=== PATIENT | female | born 1990 | race Caucasian/White ===

== ENCOUNTER 2016-10-20 21:17 | Emergency (ER) | payer BC ==
[~2016-10-20] VITALS: Ht 167.6 cm; Wt 82.0 kg
[~2016-10-20 21:17] MED LIST: DOXY100C PO; METR-1 PO
[2016-10-20 21:19] VITALS: BP 131/80; PULSE 82; RESP 16; TEMP 97.8; O2SAT 100
[2016-10-20] MEDS ORDERED: CLINDAMYCIN 150 MG CAP PO ONE (21:45)
[2016-10-20] MEDS ORDERED: NAPROXEN 500 MG TAB PO ONE (21:45)
--- NOTE | 2016-10-20 21:47 | PD ---
HPI Chief Complaint: Oral / Dental Pain or Problem Time Seen by Provider: 21:43 Travel History International Travel<30 days: No Contact w/Intl Traveler<30days: No Traveled to known affect area: No History of Present Illness HPI Patient comes in complaining of right lower molar tooth pain that she awoke with this morning. Patient's pain is throbbing stabbing like in nature and radiates into her ear and head. Pain is worse with smoking, eating, or drinking anything. Patient has taken aspirin as well as Orajel with minimal to no relief of her symptoms. Patient denies any fevers or difficulty swallowing. Denies . PFSH Past Medical History Medical History: Denies Significant Hx Hx Anticoagulant Therapy: No Cardiovascular Problems: No Chemotherapy: No Cerebrovascular Accident: No Diabetes: No Diminished Hearing: No Respiratory: No ?: Not LMP: DEPO INJ : 2 Para: 1 Miscarriage: 1 Past Surgical History Section: Yes Gynecologic Surgery: Yes (LT OVARY REMOVED) Hysterectomy: No Other Surgery: Yes (LT BREAST LUMPECTOMY) Social History Alcohol Use: Yes (OCC) Tobacco Use: Yes (1/2PPD) Substance Use: No Allergies-Medications (Allergen,Severity, Reaction): Coded Allergies: Erythromycin (Unverified Allergy, Severe, SWELLING, 10/20/16) *MDRO Multi-Drug Resistant Organism (Verified Adverse Reaction, Unknown, ) 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 SKIN: Warm and dry. HEAD: Atraumatic. Normocephalic. EYES: Pupils equal and round. EOMI. No scleral icterus. No injection or drainage. ENT: No nasal bleeding or discharge. Mucous membranes pink and moist. Patient impacted wisdom tooth #32 were patient states her pain is, but there is no visible or palpable abscess noted. Uvula is midline. Tympanic membranes are pearly redding bilaterally. Floor of the mouth, submandibular, and submental are all soft palpation. NECK: Trachea midline. No cervical lymphadenopathy. Supple. No nuclear rigidity. RESPIRATORY: No accessory muscle use. No respiratory distress. MUSCULOSKELETAL: No obvious deformities. No clubbing. No cyanosis. No edema. Full range of motion. NEUROLOGICAL: Awake and alert. No obvious cranial nerve deficits. Motor grossly within normal limits. Normal speech. PSYCHIATRIC: Appropriate mood and affect; insight and judgment normal. Data Data Last Documented VS Vital Signs Date Time Temp Pulse Resp B/P Pulse Ox O2 Delivery O2 Flow Rate FiO2 10/20/16 21:19 97.8 82 16 131/80 100 Orders Clindamycin (Cleocin) (10/20/16 21:45) Naproxen (Naprosyn) (10/20/16 21:45) [facility] Medical Decision Making Medical Screen Exam Complete: Yes Emergency Medical Condition: Yes Differential Diagnosis Dental abscess, dental infection, dentalgia, other Narrative Course The patient presented with dental pain. There is no fever. There is no significant facial swelling or evidence of cellulitis. There is no evidence of drainable abscess at this time. There is no evidence of significant deep or invading abscess at this time. The patient will be placed on antibiotics and pain medication. The patient was instructed to follow up with a dentist. The patient was given the dental referral sheet. Warnings were discussed with the patient regarding worsening of infection. The patient is to return if pain worsens, develops progressive swelling or facial redness or fever. The patient agrees with plan. Patient in no obvious distress upon re-evaluation. Patient was asked if they wanted to speak to my attending, which the patient did not wish to do at this time. Any questions/concerns in reference to patient diagnosis/condition discussed and clarified prior to patient's discharge. Reinforced sheer importance of close follow up with patient's primary physician or primary care clinic and/or dentist. Instructed patient to return to ED immediately, if symptoms return/worsen. Pt showed understanding of above instructions. Further instructions and recommendations were detailed in discharge paperwork. Pt ambulated without difficulty out of ED at discharge. Diagnosis Primary Impression: Dentalgia Patient Instructions: Dental Abscess (ED), Dental Caries (DC), General Instructions Additional Instructions: Follow-up with your primary care physician and dentist as soon as possible. Rinse mouth with warm salt water gargles. Take all medication as prescribed. Return to the emergency department if symptoms get worse. Med/Other Pt SpecificInfo: Prescription(s) given Scripts Naproxen (Naprosyn)500 Mg Aem358 Mg PO Q12HR PRN (PAIN SCALE 1 TO 10) #20 TAB Ref 0 Prov:Chikis Topete DO 10/20/16 Clindamycin 150 Mg Cap2 Tab PO Q6H 10 Days Ref 0 Prov:Chikis Topete DO 10/20/16 Disposition: 01 DISCHARGE HOME Condition: Stable Brad De Jesus Oct 20, 2016 21:47
[2016-10-20] MEDS ORDERED: NAPR500 PO (21:48)
[2016-10-20] MEDS ORDERED: CLIN1CAP5 PO (21:48)
== END 2016-10-20 22:02 | disposition home or self-care (01) ==
LOC: NEPB 21:17
DX: K08.89 Other specified disorders of teeth and supporting structures (principal); F17.210 Nicotine dependence, cigarettes, uncomplicated
CPT/HCPCS: 99282

== ENCOUNTER 2016-11-23 21:09 | Emergency (ER) | payer BC ==
[~2016-11-23] VITALS: Ht 167.6 cm; Wt 100.0 kg
[~2016-11-23 21:09] MED LIST changes: +CLIN1CAP5 PO; +NAPR500 PO
[2016-11-23 21:11] VITALS: BP 129/81; PULSE 74; RESP 16; TEMP 98.7; O2SAT 100
--- NOTE | 2016-11-23 21:44 | PD ---
Physical Exam Time Seen by Provider: 21:40 Narrative 26 year old female presents to the ED for evaluation stating she doesn't know if she is having a miscarriage or a ruptured cyst. LMP was two weeks ago and she has unprotected intercourse and felt flutters last week like she was . She started having brown discharge 3 days ago and passed a large clump of brown discharge that night. She has been LLQ abdominal cramping and brown discharge since. The cramping is getting worse. Rates the pain 8/10. Pt has had right oophrectomy. No other abdominal surgeries. No urinary symptoms. No fever or chills. No other significant medical history. Data Data Last Documented VS Vital Signs Date Time Temp Pulse Resp B/P Pulse Ox O2 Delivery O2 Flow Rate FiO2 11/23/16 21:11 98.7 74 16 129/81 100 MDM Medical Record Reviewed: Yes Supervised Visit with ETHAN: No Narrative Course 26 year old presents to ED for evaluation of vaginal discharge and LLQ abdominal cramping. Appears without distress. VSS Condition: Stable Kae Raman Nov 23, 2016 21:44
[2016-11-23] MEDS ORDERED: SODIUM CHLOR 0.9% 1000 ML INJ 1,000 ML IV ONE (21:55)
--- NOTE | 2016-11-23 22:11 | PD ---
HPI Chief Complaint: Clay Washer Problem/Complaint Time Seen by Provider: 21:55 Travel History International Travel<30 days: No Contact w/Intl Traveler<30days: No Traveled to known affect area: No History of Present Illness HPI The patient is a 26 year old female who presents to the [facility] emergency department with a history of on Wednesday morning beginning to have a brown vaginal discharge. She reports that on Wednesday evening she began to have pelvic cramping worse on the left side of her pelvis compared to the right. The patient reports that she is a G2 and P1 with one delivery. 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 She reports that she took a home test and it was negative. She reports that she is currently not on a contraceptive. She does occasionally use condoms. She was last on Depo- Provera a year ago. She denies having any fevers or chills. She denies having any dysuria, urinary frequency, or urinary urgency. The patient reports that she does have a history of ovarian cysts. She reports that her left ovary was removed related to a dermoid cyst. A review of systems, the patient denies any cough, congestion, neck pain, chest pain, shortness of breath, vomiting, diarrhea, or neurologic symptoms. LMP: November 09, 2016 [facility] Past Medical History Narrative Medical The patient's past medical history is significant for ovarian cysts, recurrent miscarriages. Hx Anticoagulant Therapy: No Cardiovascular Problems: No Chemotherapy: No Cerebrovascular Accident: No Diabetes: No Diminished Hearing: No Respiratory: No Tetanus Vaccination: < 5 Years Influenza Vaccination: No ?: Unknown LMP: 11/09/16 : 2 Para: 1 Miscarriage: 1 Past Surgical History Narrative Surgical The patient's past surgical history is significant for left breast lumpectomy that was benign, left ovary removal related to a dermoid cyst. 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 Reported Meds & Prescriptions Reported Meds & Active Scripts Active Flagyl (Metronidazole) 500 Mg Tab 500 Mg PO BID 7 Days Naproxen EC (Naproxen) 500 Mg Tabdr 500 Mg PO BID PRN Review of Systems Except as stated in HPI: all other systems reviewed are Neg General / Constitutional: No: Fever Eyes: No: Visual changes HENT: No: Headaches Cardiovascular: No: Chest Pain or Discomfort Respiratory: No: Shortness of Breath Gastrointestinal: Positive: Abdominal Pain, No: Nausea, Vomiting, Diarrhea, Hematochezia, Changes in Bowel Habits, Indigestion, Loss of Appetite Genitourinary: Positive: Pelvic Pain, Discharge, No: Urgency, Frequency, Dysuria, Flank Pain Musculoskeletal: No: Pain Skin: No Rash Neurologic: No: Weakness Psychiatric: No: Depression Endocrine: No: Polydipsia Hematologic/Lymphatic: No: Easy Bruising Physical Exam Narrative General: The patient is a well-developed well-nourished female in no acute distress. Head and Neck exam: Head is normocephalic atraumatic. Eyes: EOMI, pupils are equal round and reactive to light. Nose: Midline septum with pink mucous membranes Mouth: Dentition unremarkable. Moist mucus membranes. Posterior oropharynx is not erythematous. No tonsillar hypertrophy. Uvula midline. Airway patent. Neck: No palpable lymphadenopathy. No nuchal rigidity. No thyromegaly. Cardiovascular: Regular rate and rhythm without murmurs, gallops, or rubs. Lungs: Clear to auscultation bilaterally. No wheezes, rhonchi, or rales. Abdomen: Soft, with tenderness on palpation of the suprapubic area and left lower quadrant of the abdomen, minimal discomfort on palpation in the right lower quadrant of the abdomen. No guarding, rebound, or rigidity. Normal bowel sounds are audible. No tenderness on palpation over McBurney's point. Extremities: No clubbing, cyanosis, or edema. No calf tenderness on palpation. Back: No costovertebral angle tenderness to palpation. Neurologic Exam: Grossly nonfocal. Skin Exam: No rash noted. Intact skin that is warm and dry. Gynecologic exam: The patient was placed in the dorsal lithotomy position. Her external genitalia were examined. She had no evidence of rash or lesions. The speculum was placed into her vagina and the cervix was identified. She had a brown discharge noted. This was wet prep and culture. No cervical friability. On Bimanual exam: she has no cervical motion tenderness. No adnexal tenderness or prominence noted on palpation. No uterine tenderness or enlargement noted on palpation. Data Data Last Documented VS Vital Signs Date Time Temp Pulse Resp B/P Pulse Ox O2 Delivery O2 Flow Rate FiO2 11/23/16 21:11 98.7 74 16 129/81 100 Orders Beta Hcg (Quant/Titer) (11/23/16 21:55) Complete Blood Count With Diff (11/23/16 21:55) Comprehensive Metabolic Panel (11/23/16 21:55) Gc And Chlamydia Pcr (11/23/16 21:55) Wet Prep Profile (11/23/16 21:55) Urinalysis - C+S If Indicated (11/23/16 21:55) Iv Access Insert/Monitor (11/23/16 21:55) Sodium Chlor 0.9% 1000 Ml Inj (Ns 1000 M (11/23/16 21:55) Ed Urine Pregnancytest Poc (11/23/16 21:55) Ketorolac Inj (Toradol Inj) (11/23/16 23:45) Ondansetron Inj (Zofran Inj) (11/24/16 00:15) Ondansetron Inj (Zofran Inj) (11/24/16 00:02) Us Pelvis Comp W Transvaginal (11/23/16 23:34) Urine Culture (11/23/16 23:30) Labs Laboratory Tests Test 11/23/16 11/24/16 23:30 00:00 Urine Color YELLOW Urine Turbidity HAZY Urine pH 6.0 Urine Specific [place] 1.033 Urine Protein 30 mg/dL Urine Glucose (UA) NEG mg/dL Urine Ketones NEG mg/dL Urine Occult Blood MOD Urine Nitrite NEG Urine Bilirubin NEG Urine Urobilinogen 2.0 MG/DL Urine Leukocyte Esterase MOD Urine RBC 5 /hpf Urine WBC 13 /hpf Urine Squamous Epithelial 36 /hpf Cells Urine Bacteria OCC /hpf Urine Mucus MANY /lpf Microscopic Urinalysis Comment CULTURE INDICATED Clue Cells (Wet Prep) PRESENT Vaginal Trichomonas (Wet Prep) NONE SEEN Vaginal Yeast (Wet Prep) NONE SEEN White Blood Count 9.6 TH/MM3 Red Blood Count 3.89 MIL/MM3 Hemoglobin 11.7 GM/DL Hematocrit 34.7 % Mean Corpuscular Volume 89.2 FL Mean Corpuscular Hemoglobin 30.1 PG Mean Corpuscular Hemoglobin 33.8 % Concent Red Cell Distribution Width 13.7 % Platelet Count 226 TH/MM3 Mean Platelet Volume 8.2 FL Neutrophils (%) (Auto) 54.9 % Lymphocytes (%) (Auto) 34.0 % Monocytes (%) (Auto) 6.7 % Eosinophils (%) (Auto) 3.9 % Basophils (%) (Auto) 0.5 % Neutrophils # (Auto) 5.3 TH/MM3 Lymphocytes # (Auto) 3.3 TH/MM3 Monocytes # (Auto) 0.6 TH/MM3 Eosinophils # (Auto) 0.4 TH/MM3 Basophils # (Auto) 0.0 TH/MM3 CBC Comment DIFF FINAL Differential Comment Sodium Level 143 MEQ/L Potassium Level 4.0 MEQ/L Chloride Level 111 MEQ/L Carbon Dioxide Level 25.2 MEQ/L Anion Gap 7 MEQ/L Blood Urea Nitrogen 16 MG/DL Creatinine 0.69 MG/DL Estimat Glomerular Filtration 103 ML/MIN Rate Random Glucose 89 MG/DL Calcium Level 7.7 MG/DL Total Bilirubin 0.3 MG/DL Aspartate Amino Transf 16 U/L (AST/SGOT) Alanine Aminotransferase 17 U/L (ALT/SGPT) Alkaline Phosphatase 59 U/L Total Protein 6.2 GM/DL Albumin 3.3 GM/DL Human Chorionic Gonadotropin, LESS THAN 1 Quant MIU/ML MDM Medical Decision Making Medical Screen Exam Complete: Yes Emergency Medical Condition: Yes Medical Record Reviewed: Yes Interpretation(s) Last Impressions Pelvis Ultrasound 11/23/16 5994 Signed Impressions: Service Date/Time: Thursday, November 24, 2016 00:04 - CONCLUSION: Prominence cyst within the right ovary. Left ovary is surgically absent. No visualized endometrial gestational sac is identified. Edmund Marti MD Differential Diagnosis Ovarian cyst, versus dysfunctional uterine bleeding, versus ectopic , versus threatened miscarriage, versus cervicitis Narrative Course During the course of the patients emergency department visit, the patients history, examination, and differential diagnosis were reviewed with the patient. The patient had IV access obtained and blood work sent for analysis. The patient will have a pelvic examination. A bedside test was reportedly negative. An ultrasound of the pelvis was ordered The patient was initially provided normal saline 1 L IV fluid bolus, Toradol 15 mg IV, Zofran 4 mg IV for nausea. The patients laboratory studies were reviewed and remarkable for a white count of 9.6, hemoglobin 11.7, platelets 226 with a normal differential. CMP is unremarkable, beta hCG is negative. Wet prep is positive for clue cells. The patient will be discharged home with a prescription for Flagyl. Urinalysis shows hematuria with pyuria, however there is significant contaminant with squamous epithelial cells of 36, culture indicated. The patient will be called back if culture is positive for a urinary tract infection. Radiology studies were reviewed and remarkable for an ultrasound that shows an ovarian cyst on the right that appears to be a functional cyst. No other acute abnormality. The patient was instructed regarding the importance of following up with a learning support aide. She was given the name of the learning support aide on-call, Dr. Garcia for follow-up. The patient is resting comfortably and feels better, is alert and in no distress. The patients results and examination findings were discussed with the patient. The repeat examination is unremarkable and benign. The history, exam, diagnostic testing, and current condition do not suggest any significant pathology to warrant further testing, continued ED treatment, admission, or surgical evaluation at this point. The vital signs have been stable. The patient does not have uncontrollable pain, intractable vomiting, or other significant symptoms. The patient's condition is stable and appropriate for discharge. The patient will pursue further outpatient evaluation with a primary care physician or other designated or consulting physician as indicated in the discharge instructions. The patient expressed understanding and was agreeable with this plan. Diagnosis Primary Impression: Dysfunctional uterine bleeding Additional Impression: Bacterial vaginosis Referrals: Dori Garcia MD 3 days Patient Instructions: Dysfunctional Uterine Bleeding (ED), General Instructions Med/Other Pt SpecificInfo: Prescription(s) given Scripts Metronidazole (Flagyl)500 Mg [id number] Mg PO BID 7 Days Ref 0 Prov:Dianelys Rene MD 11/24/[address] (Naproxen EC)500 Mg [id number] Mg PO BID PRN (PAIN GREATER THAN 5) # 10 TAB Ref 0 Prov:Dianelys Rene MD 11/24/16 Disposition: 01 DISCHARGE HOME Condition: Stable Dianelys Rene MD Nov 23, 2016 22:11
[2016-11-23] MEDS ORDERED: KETOROLAC TROMETHAMINE 30 MG/ML (IVP) VIAL IV PUSH ONE (23:45)
[2016-11-24] MEDS ORDERED: ONDANSETRON HCL 4 MG/2 ML VIAL ONE (00:02)
[2016-11-24] MEDS ORDERED: ONDANSETRON HCL 4 MG/2 ML VIAL IV ONE (00:15)
[2016-11-24 00:24] LABS: AUTOMATED NEUTROPHIL # 5.3 TH/MM3 (1.8-7.7); BASOPHIL % 0.5 % (0.0-2.0); EOSINOPHIL # 0.4 TH/MM3 (0-0.4); EOSINOPHIL % 3.9 % (0.0-4.0); HEMATOCRIT 34.7 % (35.0-46.0); HEMO FLAGS DIFF FINAL; LYMPHOCYTE # 3.3 TH/MM3 (1.0-4.8); MEAN CELL VOLUME 89.2 FL (80.0-100.0); MEAN CORPUSCULAR HEMOGLOBIN 30.1 PG (27.0-34.0); MEAN CORPUSCULAR HGB CONC 33.8 % (32.0-36.0); MONO % 6.7 % (0.0-8.0); NEUT % 54.9 % (16.0-70.0); PLATELET COUNT 226 TH/MM3 (150-450); RED BLOOD COUNT 3.89 MIL/MM3 (4.00-5.30); RED CELL DISTRIBUTION WIDTH 13.7 % (11.6-17.2); WHITE BLOOD COUNT 9.6 TH/MM3 (4.0-11.0)
[2016-11-24] MEDS ORDERED: NAPR1TAB34 PO (00:36)
[2016-11-24 00:50] LABS: ALT (GPT) 17 U/L (10-53); ANION GAP 7 MEQ/L (5-15); AST (GOT) 16 U/L (15-37); BICARBONATE 25.2 MEQ/L (21.0-32.0); BLOOD UREA NITROGEN 16 MG/DL (7-18); CHLORIDE 111 MEQ/L (98-107); GLOMERULAR FILTRATION RATE 103 ML/MIN (>89); SODIUM (NA) 143 MEQ/L (136-145)
[2016-11-24 00:52] LABS: ALKALINE PHOSPHATASE 59 U/L (45-117); BETA HCG QUANT LESS THAN 1 MIU/ML (0-5); TOTAL BILIRUBIN ADULT 0.3 MG/DL (0.2-1.0)
--- NOTE | 2016-11-24 00:52 | RADRPT ---
EXAM DATE/TIME: 11/24/2016 00:04 [facility] COMPARISON: No previous studies available for comparison. INDICATIONS : Pelvic cramping and brown discharge. MEDICAL HISTORY : Pelvic cramping and brown discharge. SURGICAL HISTORY : section. Left oopherectomy. Left breast lumpectomy. ENCOUNTER: Initial ACUITY: 3 days PAIN SCORE: 2/10 LOCATION: Bilateral pelvis MEASUREMENTS: UTERUS: 8.3 x 4.3 x 3.5 cm ENDOMETRIAL STRIPE: 3 mm RIGHT OVARY: 5.2 x 4.1 x 3.3 cm LEFT OVARY: Surgically absent FINDINGS: UTERUS: The myometrium has homogeneous echotexture without mass.Questionable tiny amount of fluid in the lowe r uterine segment RIGHT OVARY: Ovary contains no solid mass. There is a significant cystic lesion measuring 4.1 x 3.5 x 2.3 cm likel y functional cyst. LEFT OVARY: Surgically absent. MISCELLANEOUS: No free fluid. CONCLUSION: Prominence cyst within the right ovary. Left ovary is surgically absent. No visualized endometrial ge stational sac is identified. Edmund Marti MD on November 24, 2016 at 0:49 Board Certified Radiologist. This report was verified electronically.
[2016-11-24 01:09] LABS: BACTERIA, URINE OCC /hpf; BLOOD, URINE MOD (NEG); GLUCOSE,URINE NEG (NEG); KETONE, URINE NEG (NEG); MUCUS URINE MANY /lpf (OCC); NITRITE,URINE NEG (NEG); SQUAMOUS EPITHELIAL CELL URINE 36 /hpf (0-5); URINE COLOR YELLOW (YELLW/STRAW)
[2016-11-24 01:10] LABS: COMMENT (UR) CULTURE INDICATED; CULTURE IF INDICATED CULTURE INDICATED
[2016-11-24] MEDS ORDERED: METR-1 PO (01:35)
[2016-11-24 01:55] VITALS: BP 130/77
[2016-11-24 03:25] LABS: CHLAMYDIA PCR NOT DETECTED (NOT DETECT); NEISSERIA PCR NOT DETECTED (NOT DETECT)
== END 2016-11-24 01:55 | disposition home or self-care (01) ==
LOC: NEPC 21:09
DX: N93.8 Other specified abnormal uterine and vaginal bleeding (principal); N76.0 Acute vaginitis; B96.89 Other specified bacterial agents as the cause of diseases classified elsewhere; Z72.0 Tobacco use
CPT/HCPCS: 76830; 76856; 80053; 81001; 84702; 84703; 85025; 87086; 87210; 87491; 87591; 96361; 96374; 96375; 99284; J1885; J2405; J7030

== ENCOUNTER 2017-02-02 23:50 | Emergency (ER) | payer BC ==
[~2017-02-02] VITALS: Ht 167.6 cm; Wt 80.0 kg
[~2017-02-02 23:50] MED LIST changes: -CLIN1CAP5 PO; -DOXY100C PO; +NAPR1TAB34 PO; -NAPR500 PO
[2017-02-02 23:53] VITALS: BP 137/95; PULSE 87; RESP 16; TEMP 98.6; O2SAT 99
[2017-02-03 01:00] VITALS: PULSE 88; RESP 16; O2SAT 100
--- NOTE | 2017-02-03 01:24 | RADRPT ---
EXAM DATE/TIME: 02/03/2017 00:51 [facility] COMPARISON: CHEST SINGLE AP, February 27, 2015, 22:47. INDICATIONS : Cough. MEDICAL HISTORY : None. SURGICAL HISTORY : None. ENCOUNTER: Initial ACUITY: 3 days PAIN SCORE: 0/10 LOCATION: Bilateral chest FINDINGS: A single view of the chest demonstrates the lungs to be symmetrically aerated without evidence of mas s, infiltrate or effusion. The cardiomediastinal contours are unremarkable. Osseous structures are intact. CONCLUSION: The lungs are clear. Cooper Pace MD on February 03, 2017 at 1:22 Board Certified Radiologist. This report was verified electronically.
[2017-02-03 01:38] LABS: AUTOMATED NEUTROPHIL # 4.4 TH/MM3 (1.8-7.7); BASOPHIL # 0.1 TH/MM3 (0-0.2); BASOPHIL % 0.7 % (0.0-2.0); EOSINOPHIL # 0.4 TH/MM3 (0-0.4); EOSINOPHIL % 4.4 % (0.0-4.0); HEMATOCRIT 36.7 % (35.0-46.0); HEMO FLAGS DIFF FINAL; LYMPH % 35.5 % (9.0-44.0); LYMPHOCYTE # 2.9 TH/MM3 (1.0-4.8); MEAN CELL VOLUME 89.7 FL (80.0-100.0); MEAN CORPUSCULAR HGB CONC 33.4 % (32.0-36.0); MONO % 6.3 % (0.0-8.0); NEUT % 53.1 % (16.0-70.0); PLATELET COUNT 267 TH/MM3 (150-450); RED BLOOD COUNT 4.09 MIL/MM3 (4.00-5.30); RED CELL DISTRIBUTION WIDTH 14.1 % (11.6-17.2); WHITE BLOOD COUNT 8.3 TH/MM3 (4.0-11.0)
[2017-02-03 01:47] LABS: APTT (PATIENT) 27.3 SEC (24.3-30.1); INTERNATIONAL NORMALIZED RATIO 0.9 RATIO; PROTHROMBIN TIME - PATIENT 10.2 SEC (9.8-11.6)
[2017-02-03 01:59] LABS: ALT (GPT) 15 U/L (10-53); ANION GAP 5 MEQ/L (5-15); AST (GOT) 10 U/L (15-37); BLOOD UREA NITROGEN 13 MG/DL (7-18); CHLORIDE 109 MEQ/L (98-107); GLOMERULAR FILTRATION RATE 110 ML/MIN (>89); POTASSIUM 3.8 MEQ/L (3.5-5.1); SODIUM (NA) 142 MEQ/L (136-145)
[2017-02-03] MEDS ORDERED: KETOROLAC TROMETHAMINE 30 MG/ML (IVP) VIAL IV PUSH ONE (02:00)
[2017-02-03] MEDS ORDERED: SODIUM CHLOR 0.9% 1000 ML INJ 1,000 ML IV ONE (02:00)
[2017-02-03] MEDS ORDERED: PROCHLORPERAZINE INJ 10 MG/2 ML VIAL IV PUSH ONE (02:00)
[2017-02-03] MEDS ORDERED: diphenhydrAMINE HCL 50 MG/ML VIAL IV PUSH ONE (02:00)
[2017-02-03 02:01] LABS: ALKALINE PHOSPHATASE 67 U/L (45-117); TOTAL BILIRUBIN ADULT 0.2 MG/DL (0.2-1.0)
[2017-02-03 02:03] LABS: BACTERIA, URINE RARE /hpf; BLOOD, URINE SMALL (NEG); COMMENT (UR) CULT NOT INDICATED; CULTURE IF INDICATED CULT NOT INDICATED; GLUCOSE,URINE NEG (NEG); HYALINE CAST, URINE 1 /lpf (RARE); KETONE, URINE NEG (NEG); MUCUS URINE FEW /lpf (OCC); NITRITE,URINE NEG (NEG); SQUAMOUS EPITHELIAL CELL URINE 10 /hpf (0-5); URINE COLOR YELLOW (YELLW/STRAW)
--- NOTE | 2017-02-03 02:04 | PD ---
HPI Chief Complaint: Headache Time Seen by Provider: 00:20 Travel History International Travel<30 days: No Contact w/Intl Traveler<30days: No Traveled to known affect area: No History of Present Illness HPI The patient is a 26 year old female who presents to the [facility] emergency department with a history of headache that began at 10 PM. She reports that it was a dull headache at the top of her head initially and then gradually began to fill until 11 PM to his current severity. She reports that the pain is a pressure sensation like her head is going to explode. She denies having any neck pain. She denies having any numbness or weakness to her extremities. She reports having some sensitivity to light and sound. She reports having nausea without vomiting. She reports that 2 days ago she did have several episodes of diarrhea. She denies having any family history of headaches. Otherwise, on review of systems, the patient denies any recent fevers, cough, congestion, neck pain, chest pain, shortness of breath, abdominal pain, vomiting, diarrhea, urinary symptoms, or other neurologic symptoms. FORMERLY [facility], [facility] Past Medical History Narrative Medical The patient's past medical history is significant for heart murmur in childhood. Hx Anticoagulant Therapy: No Cardiovascular Problems: Yes (MURMUR) Chemotherapy: No Cerebrovascular Accident: No Diabetes: No Diminished Hearing: No Respiratory: No Tetanus Vaccination: < 5 Years Influenza Vaccination: No ?: Unknown LMP: 01/27 : 2 Para: 1 Miscarriage: 1 Past Surgical History Narrative Surgical The Patient's past surgical history is reportedly a lobectomy that was found to be benign, a , and left ovary removal. 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 Reported Meds & Prescriptions Reported Meds & Active Scripts Active EC-Naprosyn (Naproxen) 500 Mg Tabdr 500 Mg PO BID PRN Review of Systems Except as stated in HPI: all other systems reviewed are Neg General / Constitutional: No: Fever Eyes: No: Visual changes HENT: Positive: Headaches, No: Neck Stiffness, Neck Pain Cardiovascular: No: Chest Pain or Discomfort Respiratory: No: Shortness of Breath Gastrointestinal: Positive: Nausea, No: Abdominal Pain Genitourinary: No: Dysuria Musculoskeletal: No: Pain Skin: No Rash Neurologic: No: Weakness Psychiatric: No: Depression Endocrine: No: Polydipsia Hematologic/Lymphatic: No: Easy Bruising Physical Exam Narrative General: The patient is a well-developed well-nourished female in no acute distress. Head and Neck exam: Head is normocephalic atraumatic. Eyes: EOMI, pupils are equal round and reactive to light. Nose: Midline septum with pink mucous membranes Mouth: Dentition unremarkable. Moist mucus membranes. Posterior oropharynx is not erythematous. No tonsillar hypertrophy. Uvula midline. Airway patent. Neck: No palpable lymphadenopathy. No nuchal rigidity. No thyromegaly. Cardiovascular: Regular rate and rhythm without murmurs, gallops, or rubs. Lungs: Clear to auscultation bilaterally. No wheezes, rhonchi, or rales. Abdomen: Soft, without tenderness to palpation in all 4 quadrants of the abdomen. No guarding, rebound, or rigidity. Normal bowel sounds are audible. No tenderness on palpation of McBurney's point. Negative [place] sign. Extremities: No clubbing, cyanosis, or edema. 2+ pulses in all 4 extremities. No calf tenderness on palpation Back: No spinous process tenderness to palpation. No costovertebral angle tenderness to palpation. Neurologic Exam: Cranial nerves 2-12 were intact on exam. Strength is 5/5 in all 4 extremities. No sensory deficits noted. Skin Exam: No rash noted. Intact skin that is warm and dry. Data Data Last Documented VS Vital Signs Date Time Temp Pulse Resp B/P Pulse Ox O2 Delivery O2 Flow Rate FiO2 02/03/17 01:00 88 16 100 Room Air 02/02/17 23:53 98.6 137/95 Orders Complete Blood Count With Diff (02/03/17 00:54) Comprehensive Metabolic Panel (02/03/17 00:54) Prothrombin Time / Inr (Pt) (02/03/17 00:54) Act Partial Throm Time (Ptt) (02/03/17 00:54) C-Reactive Protein (Crp) (02/03/17 00:54) Urinalysis - C+S If Indicated (02/03/17 00:54) Chest, Single Ap (02/03/17 00:54) Ct Brain W/O Iv Contrast(Rout) (02/03/17 00:54) Iv Access Insert/Monitor (02/03/17 00:54) Ecg Monitoring (02/03/17 00:54) Oximetry (02/03/17 00:54) Ed Urine Pregnancytest Poc (02/03/17 00:54) Sodium Chlor 0.9% 1000 Ml Inj (Ns 1000 M (02/03/17 02:00) Prochlorperazine Inj (Compazine Inj) (02/03/17 02:00) Ketorolac Inj (Toradol Inj) (02/03/17 02:00) Diphenhydramine Inj (Benadryl Inj) (02/03/17 02:00) Labs Laboratory Tests Test 02/03/17 02/03/17 01:25 01:30 White Blood Count 8.3 TH/MM3 Red Blood Count 4.09 MIL/MM3 Hemoglobin 12.3 GM/DL Hematocrit 36.7 % Mean Corpuscular Volume 89.7 FL Mean Corpuscular Hemoglobin 30.0 PG Mean Corpuscular Hemoglobin 33.4 % Concent Red Cell Distribution Width 14.1 % Platelet Count 267 TH/MM3 Mean Platelet Volume 8.1 FL Neutrophils (%) (Auto) 53.1 % Lymphocytes (%) (Auto) 35.5 % Monocytes (%) (Auto) 6.3 % Eosinophils (%) (Auto) 4.4 % Basophils (%) (Auto) 0.7 % Neutrophils # (Auto) 4.4 TH/MM3 Lymphocytes # (Auto) 2.9 TH/MM3 Monocytes # (Auto) 0.5 TH/MM3 Eosinophils # (Auto) 0.4 TH/MM3 Basophils # (Auto) 0.1 TH/MM3 CBC Comment DIFF FINAL Differential Comment Prothrombin Time 10.2 SEC Prothromb Time International 0.9 RATIO Ratio Activated Partial 27.3 SEC Thromboplast Time Sodium Level 142 MEQ/L Potassium Level 3.8 MEQ/L Chloride Level 109 MEQ/L Carbon Dioxide Level 28.0 MEQ/L Anion Gap 5 MEQ/L Blood Urea Nitrogen 13 MG/DL Creatinine 0.65 MG/DL Estimat Glomerular Filtration 110 ML/MIN Rate Random Glucose 85 MG/DL Calcium Level 8.6 MG/DL Total Bilirubin 0.2 MG/DL Aspartate Amino Transf 10 U/L (AST/SGOT) Alanine Aminotransferase 15 U/L (ALT/SGPT) Alkaline Phosphatase 67 U/L C-Reactive Protein LESS THAN 0.29 MG/DL Total Protein 7.0 GM/DL Albumin 3.7 GM/DL Urine Color YELLOW Urine Turbidity HAZY Urine pH 6.0 Urine Specific [place] 1.027 Urine Protein NEG mg/dL Urine Glucose (UA) NEG mg/dL Urine Ketones NEG mg/dL Urine Occult Blood SMALL Urine Nitrite NEG Urine Bilirubin NEG Urine Urobilinogen LESS THAN 2.0 MG/DL Urine Leukocyte Esterase TRACE Urine RBC 2 /hpf Urine WBC 4 /hpf Urine Squamous Epithelial 10 /hpf Cells Urine Bacteria RARE /hpf Urine Hyaline Casts 1 /lpf Urine Mucus FEW /lpf Microscopic Urinalysis Comment CULT NOT INDICATED MDM Medical Decision Making Medical Screen Exam Complete: Yes Emergency Medical Condition: Yes Medical Record Reviewed: Yes Differential Diagnosis Migraine headache versus tension headache, versus subarachnoid hemorrhage, versus cluster headache, versus sinusitis headache Narrative Course During the course of the patients emergency department visit, the patients history, examination, and differential diagnosis were reviewed with the patient. The patient had IV access obtained and blood work sent for analysis. The patient was placed on a technical sales engineer with oximetry and blood pressure monitoring. The patient had a CT scan of the brain ordered, chest x-ray ordered. The patient was initially provided normal saline 1 L IV fluid bolus, Toradol 15 mg IV, Benadryl 25 mg IV, Compazine 5 mg IV. The patient reports that she has a ride home available. The patients laboratory studies were reviewed and remarkable for a CBC that is unremarkable. CMP is remarkable for chloride of 109, AST 10, C-reactive protein less than 0.29, albumin 3.7, PT 10.2, PTT 27.3, urinalysis shows small occult blood, trace leukocyte esterase, rare bacteria Radiology studies were reviewed and remarkable for a chest x-ray that shows no acute abnormality. The patient was reexamined. The patient reports that her headache has completely resolved. She is resting comfortably. The patient will be discharged home to follow-up with her primary care physician. The patient is resting comfortably and feels better, is alert and in no distress. The patients results and examination findings were discussed with the patient. The repeat examination is unremarkable and benign. The history, exam, diagnostic testing, and current condition do not suggest any significant pathology to warrant further testing, continued ED treatment, admission, or surgical evaluation at this point. The vital signs have been stable. The patient does not have uncontrollable pain, intractable vomiting, or other significant symptoms. The patient's condition is stable and appropriate for discharge. The patient will pursue further outpatient evaluation with a primary care physician or other designated or consulting physician as indicated in the discharge instructions. The patient expressed understanding and was agreeable with this plan. Diagnosis Primary Impression: Headache Qualified Code: R51 - Acute nonintractable headache, unspecified headache type Referrals: Primary Care Physician 3 days Patient Instructions: Acute Headache (ED), General Instructions Med/Other Pt SpecificInfo: Prescription(s) given Scripts Naproxen DR (EC-Naprosyn)500 Mg [id number] Mg PO BID PRN (PAIN GREATER THAN 5) # 10 TAB Ref 0 Prov:Dianelys Rene MD 02/03/17 Disposition: 01 DISCHARGE HOME Condition: Stable Dianelys Rene MD Feb 03, 2017 02:04
--- NOTE | 2017-02-03 03:45 | RADRPT ---
EXAM DATE/TIME: 02/03/2017 02:33 [facility] COMPARISON: No previous studies available for comparison. INDICATIONS : Headaches with blurred vision. RADIATION DOSE: 56.35 CTDIvol (mGy) MEDICAL HISTORY : None SURGICAL HISTORY : None. ENCOUNTER: Initial ACUITY: 1 day PAIN SCALE: 7/10 LOCATION: cranial TECHNIQUE: Multiple contiguous axial images were obtained of the head. Using automated exposure control and adj ustment of the mA and/or kV according to patient size, radiation dose was kept as low as reasonably a chievable to obtain optimal diagnostic quality images. DICOM format image data is available electro nically for review and comparison. FINDINGS: CEREBRUM: The ventricles are normal for age. No evidence of midline shift, mass lesion, hemorrhage or acute in farction. No extra-axial fluid collections are seen. POSTERIOR FOSSA: The cerebellum and brainstem are intact. The 4th ventricle is midline. The cerebellopontine angle i s unremarkable. EXTRACRANIAL: The visualized portion of the orbits is intact. SKULL: The calvaria is intact. No evidence of skull fracture. CONCLUSION: Negative noncontrast CT brain. Cooper Pace MD on February 03, 2017 at 3:43 Board Certified Radiologist. This report was verified electronically.
[2017-02-03] MEDS ORDERED: EC-N500T PO (04:06)
== END 2017-02-03 04:29 | disposition home or self-care (01) ==
LOC: NEPE 23:50
DX: R51 Headache (principal)
CPT/HCPCS: 70450; 71010; 80053; 81001; 84703; 85025; 85610; 85730; 86140; 96361; 96374; 96375; 99285; J0780; J1200; J1885; J7030

== ENCOUNTER 2017-05-31 20:17 | Emergency (ER) | payer SELFPAY ==
[~2017-05-31] VITALS: Ht 167.6 cm; Wt 85.0 kg
[~2017-05-31 20:17] MED LIST changes: +EC-N500T PO; -METR-1 PO; -NAPR1TAB34 PO
[2017-05-31 20:19] VITALS: BP 132/82; PULSE 100; RESP 16; TEMP 98.9; O2SAT 98
[2017-05-31] MEDS ORDERED: BACT800T5 PO (22:06)
--- NOTE | 2017-05-31 22:10 | PD ---
HPI Chief Complaint: Bite or Sting Time Seen by Provider: 21:17 Travel History International Travel<30 days: No Contact w/Intl Traveler<30days: No Traveled to known affect area: No History of Present Illness HPI 26-year-old white female presents to emergency department with a complaint of a spider bite to her left buttocks. She states that she has a tender red swollen area. This is been present now for the past 2 days. Pain is [id number]. No alleviating factors. No exacerbating factors. She denies any recent illness otherwise. She's reported some associated nausea and vomiting due to pain. She denies any abdominal pain or urinary symptoms. PFSH Past Medical History Hx Anticoagulant Therapy: No Cardiovascular Problems: Yes (MURMUR) Chemotherapy: No Cerebrovascular Accident: No Diabetes: No Diminished Hearing: No Respiratory: No Tetanus Vaccination: < 5 Years ?: Not LMP: 05/29/17 : 2 Para: 1 Miscarriage: 1 Past Surgical History Narrative Surgical Excisional left benign breast lump, , salpingo-oophorectomy Section: Yes Gynecologic Surgery: Yes (LT OVARY REMOVED) Hysterectomy: No Other Surgery: Yes (LT BREAST LUMPECTOMY) Social History Alcohol Use: No (OCC) Tobacco Use: Yes (a quarter of a pack per day) Substance Use: No Allergies-Medications (Allergen,Severity, Reaction): Coded Allergies: erythromycin base (Unverified Allergy, Severe, SWELLING, 03/23/17) *MDRO Multi-Drug Resistant Organism (Verified Adverse Reaction, Unknown, ) 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 Reported Meds & Prescriptions Reported Meds & Active Scripts Active EC-Naprosyn (Naproxen) 500 Mg Tabdr 500 Mg PO BID PRN Review of Systems General / Constitutional: No: Fever Eyes: No: Visual changes HENT: No: Headaches Cardiovascular: No: Chest Pain or Discomfort Respiratory: No: Shortness of Breath Gastrointestinal: Positive: Nausea, Vomiting, No: Abdominal Pain Genitourinary: No: Dysuria Musculoskeletal: No: Pain Skin: Positive Lumps, No Rash Neurologic: No: Weakness Psychiatric: No: Depression Endocrine: No: Polydipsia Hematologic/Lymphatic: No: Easy Bruising Physical Exam Narrative GENERAL: This is a well-nourished, well-developed patient, in no apparent distress. The patient is examined with [employer] tech present SKIN: Patient has a 1.5 x 1.5 cm area of erythema and tenderness to the right buttocks. There is a central small pustule., ecchymoses or lesions. Warm and dry. HEAD: Atraumatic. Normocephalic. EYES: PERRL, EOMI, no discharge or injection. No scleral icterus. EARS: Clear NOSE: Nasal turbinates appear normal. THROAT: Mucosa pink and moist. Airway patent. NECK: Trachea midline. supple, moves head freely. LUNGS: Clear to auscultation. CV: Regular in rhythm. ABDOMEN: Soft nontender. EXT: No clubbing cyanosis or edema. Data Data Last Documented VS Vital Signs Date Time Temp Pulse Resp B/P (MAP) Pulse Ox O2 Delivery O2 Flow Rate FiO2 05/31/17 20:19 98.9 100 16 132/82 (99) 98 Room Air Orders Orders Sulfamet-Trimeth Ds 800-160 Mg (Bactrim (05/31/17 22:15) Ed Discharge Order (05/31/17 22:05) MDM Medical Decision Making Medical Screen Exam Complete: Yes Emergency Medical Condition: Yes Medical Record Reviewed: Yes Differential Diagnosis MDM: High Differential diagnoses: Abscess, folliculitis, cellulitis, lymphangitis, abrasion, contact dermatitis Narrative Course Patient given Bactrim DS by mouth. This is right buttock abscess Diagnosis Primary Impression: Abscess of right buttock Patient Instructions: General Instructions Additional Instructions: Rest. Elevation. keep clean and dry. Warm compresses. Daily wound care with soap, water and Neosporin. Three Advil every 6 hours. Bactrim DS. Follow-up with a primary care doctor in one week. Return to the ER for any problems. Med/Other Pt SpecificInfo: Prescription(s) given, Wound Care Scripts Sulfamethoxazole-Trimethoprim (Bactrim DS) 800-160 Mg Tab 1 TAB PO BID for Infection, #20 TAB 0 Refills Prov: Chikis Topete DO 05/31/17 Disposition: 01 DISCHARGE HOME Condition: Stable Eladio Montes May 31, 2017 22:10
[2017-05-31] MEDS ORDERED: SULFAMETHOXAZOLE-TRIMETHOPRIM DS 800-160 MG TAB PO ONE (22:15)
== END 2017-05-31 22:35 | disposition home or self-care (01) ==
LOC: NEPD 20:17
DX: L02.31 Cutaneous abscess of buttock (principal)
CPT/HCPCS: 99283

== ENCOUNTER 2017-07-11 00:50 | Emergency (ER) | payer SELFPAY ==
[~2017-07-11] VITALS: Ht 167.6 cm; Wt 78.0 kg
[~2017-07-11 00:50] MED LIST changes: +BACT800T5 PO; -EC-N500T PO; +NAPR-810 PO
[2017-07-11 00:52] VITALS: BP 125/88; PULSE 78; RESP 18; TEMP 98; O2SAT 100
[2017-07-11] MEDS ORDERED: ONDANSETRON HCL 4 MG/2 ML VIAL IVP ONE (01:15)
[2017-07-11] MEDS ORDERED: SODIUM CHLOR 0.9% 1000 ML INJ 1,000 ML IV ONE (01:15)
[2017-07-11 02:16] LABS: AUTOMATED NEUTROPHIL # 4.6 TH/MM3 (1.8-7.7); BASOPHIL % 0.5 % (0.0-2.0); EOSINOPHIL # 0.4 TH/MM3 (0-0.4); EOSINOPHIL % 4.8 % (0.0-4.0); HEMATOCRIT 36.8 % (35.0-46.0); HEMO FLAGS DIFF FINAL; LYMPH % 34.4 % (9.0-44.0); MEAN CELL VOLUME 90.1 FL (80.0-100.0); MEAN CORPUSCULAR HEMOGLOBIN 30.4 PG (27.0-34.0); MEAN CORPUSCULAR HGB CONC 33.7 % (32.0-36.0); MONO % 7.1 % (0.0-8.0); NEUT % 53.2 % (16.0-70.0); PLATELET COUNT 231 TH/MM3 (150-450); RED BLOOD COUNT 4.08 MIL/MM3 (4.00-5.30); RED CELL DISTRIBUTION WIDTH 13.7 % (11.6-17.2); WHITE BLOOD COUNT 8.7 TH/MM3 (4.0-11.0)
[2017-07-11 02:33] LABS: BACTERIA, URINE OCC /hpf; BLOOD, URINE TRACE (NEG); CALCIUM OXALATE CRYSTALS,URINE RARE /hpf; COMMENT (UR) CULTURE INDICATED; CULTURE IF INDICATED CULTURE INDICATED; GLUCOSE,URINE NEG (NEG); KETONE, URINE NEG (NEG); MUCUS URINE FEW /lpf (OCC); NITRITE,URINE POS (NEG); PH, URINE 5.5 (5.0-8.5); SQUAMOUS EPITHELIAL CELL URINE 6 /hpf (0-5); URINE COLOR YELLOW (YELLW/STRAW)
[2017-07-11 02:44] LABS: ANION GAP 5 MEQ/L (5-15); AST (GOT) 14 U/L (15-37); BICARBONATE 28.2 MEQ/L (21.0-32.0); BLOOD UREA NITROGEN 13 MG/DL (7-18); CHLORIDE 106 MEQ/L (98-107); GLOMERULAR FILTRATION RATE 101 ML/MIN (>89); POTASSIUM 3.5 MEQ/L (3.5-5.1); SODIUM (NA) 139 MEQ/L (136-145)
[2017-07-11 02:49] LABS: ALKALINE PHOSPHATASE 66 U/L (45-117); ALT (GPT) 13 U/L (10-53); BETA HCG QUANT LESS THAN 1 MIU/ML (0-5); TOTAL BILIRUBIN ADULT 0.2 MG/DL (0.2-1.0)
[2017-07-11 03:00] VITALS: BP 132/92; PULSE 84; RESP 16; O2SAT 100
[2017-07-11 04:06] VITALS: BP 130/84; PULSE 76; RESP 14; O2SAT 99
[2017-07-11] MEDS ORDERED: cefTRIAXone INJ 1,000 MG in SODIUM CHLORIDE 0.9% INJ 100 ML IV ONE (04:30)
[2017-07-11] MEDS ORDERED: KETOROLAC TROMETHAMINE 30 MG/ML (IVP) VIAL IV PUSH ONE (04:30)
--- NOTE | 2017-07-11 04:46 | RADRPT ---
EXAM DATE/TIME: 07/11/2017 04:26 [facility] COMPARISON: CT ABDOMEN & PELVIS W/O CONTRAST, July 10, 2016, 9:38. INDICATIONS : Medial abdominal pain and vomiting; rule out renal calculi. ORAL CONTRAST: No oral contrast ingested. RADIATION DOSE: 5.42 CTDIvol (mGy) MEDICAL HISTORY : None SURGICAL HISTORY : section. left oopherectomy ENCOUNTER: Initial ACUITY: 1 day PAIN SCALE: 7/10 LOCATION: abdomen TECHNIQUE: Volumetric scanning of the abdomen and pelvis was performed. Using automated exposure control and ad justment of the mA and/or kV according to patient size, radiation dose was kept as low as reasonably achievable to obtain optimal diagnostic quality images. DICOM format image data is available electro nically for review and comparison. FINDINGS: LOWER LUNGS: The visualized lower lungs are clear. LIVER: Homogeneous density without lesion. There is no dilation of the biliary tree. No calcified gallston es. SPLEEN: Normal size without lesion. PANCREAS: Within normal limits. KIDNEYS: Normal in size and shape. There is no mass, stone, or hydronephrosis. ADRENAL GLANDS: Within normal limits. VASCULAR: There is no aortic aneurysm. BOWEL/MESENTERY: The stomach, small bowel, and colon demonstrate no acute abnormality. There is no free intraperitone al air or fluid. The appendix is normal. ABDOMINAL WALL: Within normal limits. RETROPERITONEUM: There is no lymphadenopathy. BLADDER: No wall thickening or mass. REPRODUCTIVE: Within normal limits. INGUINAL: There is no lymphadenopathy or hernia. MUSCULOSKELETAL: There is a stable bone island in the right proximal femur. CONCLUSION: No acute finding is identified in the abdomen or pelvis to explain the clinical symptoms. Tacos Shrestha MD on July 11, 2017 at 4:42 Board Certified Radiologist. This report was verified electronically.
--- NOTE | 2017-07-11 04:49 | PD ---
HPI Chief Complaint: Abdominal Pain Time Seen by Provider: 01:15 Travel History International Travel<30 days: No Contact w/Intl Traveler<30days: No Traveled to known affect area: No History of Present Illness HPI 26 year-old female presents to the emergency department for complaint of one day of multiple episodes of vomiting with epigastric discomfort associated with vomiting no diarrhea no flank pain or dysuria frequency urgency vaginal discharge or vaginal bleeding. Patient is concerned that she is . Patient states her last menses was on 06/28/17. Patient is 2 para 2 AB 0. Patient has had no fever or chills. Patient denies coffee-ground emesis hematemesis melena hematochezia. Patient states her home test was negative. Patient's had no respiratory illness symptoms no sore throat no cough no congestion no earache or headache. Patient's had no skin rash or joint pain or swelling. PFSH Past Medical History Narrative Medical Heart murmur left oophorectomy left breast lumpectomy tobacco use; nursing notes reviewed Hx Anticoagulant Therapy: No Cardiovascular Problems: Yes (MURMUR) Chemotherapy: No Cerebrovascular Accident: No Diabetes: No Diminished Hearing: No Respiratory: No ?: Unknown : 2 Para: 1 Miscarriage: 1 Past Surgical History Section: Yes Gynecologic Surgery: Yes (LT OVARY REMOVED) Hysterectomy: No Other Surgery: Yes (LT BREAST LUMPECTOMY) Social History Alcohol Use: No (OCC) Tobacco Use: Yes (a quarter of a pack per day) Substance Use: No Allergies-Medications (Allergen,Severity, Reaction): Coded Allergies: erythromycin base (Unverified Allergy, Severe, SWELLING, 07/11/17) *MDRO Multi-Drug Resistant Organism (Verified Adverse Reaction, Unknown, 07/11/17) 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 Reported Meds & Prescriptions Reported Meds & Active Scripts Active Bactrim DS (Sulfamethoxazole-Trimethoprim) 800-160 Mg Tab 1 Tab PO BID EC-Naprosyn (Naproxen) 500 Mg Tabdr 500 Mg PO BID PRN Review of Systems Except as stated in HPI: all other systems reviewed are Neg General / Constitutional: No: Fever, Chills Eyes: No: Visual changes HENT: No: Headaches, Sore Throat, Congestion Cardiovascular: No: Chest Pain or Discomfort Respiratory: No: Shortness of Breath Gastrointestinal: Positive: Nausea, Vomiting, Abdominal Pain, No: Diarrhea Genitourinary: No: Dysuria (epigastric pain), Flank Pain Musculoskeletal: No: Myalgias, Arthralgias Skin: No Rash Neurologic: No: Weakness Psychiatric: No: Anxiety Hematologic/Lymphatic: No: Lymph Node Enlargement Physical Exam Narrative GENERAL: Well-developed well-nourished female in no acute distress no respiratory distress SKIN: Warm and dry. HEAD: Normocephalic. EYES: No scleral icterus. No injection or drainage. NECK: Supple, trachea midline. No JVD or lymphadenopathy. CARDIOVASCULAR: Regular rate and rhythm without murmurs, gallops, or rubs. RESPIRATORY: Breath sounds equal bilaterally. No accessory muscle use. GASTROINTESTINAL: Abdomen soft, non-tender, nondistended. MUSCULOSKELETAL: No cyanosis, or edema. BACK: Nontender without obvious deformity. No CVA tenderness. Data Data Last Documented VS Vital Signs Date Time Temp Pulse Resp B/P (MAP) Pulse Ox O2 Delivery O2 Flow Rate FiO2 07/11/17 04:06 76 14 130/84 (99) 99 Room Air 07/11/17 00:52 98.0 Orders Orders Beta Hcg (Quant/Titer) (07/11/17 01:15) Complete Blood Count With Diff (07/11/17 01:15) Comprehensive Metabolic Panel (07/11/17 01:15) Urinalysis - C+S If Indicated (07/11/17 01:15) Iv Access Insert/Monitor (07/11/17 01:15) Ondansetron Inj (Zofran Inj) (07/11/17 01:15) Ed Urine Pregnancytest Poc (07/11/17 01:15) Sodium Chlor 0.9% 1000 Ml Inj (Ns 1000 M (07/11/17 01:15) Urine Culture (07/11/17 01:52) Ct Abd/Pel W/O Iv Contrast (07/11/17 ) Ceftriaxone Inj (Rocephin Inj) (07/11/17 04:30) Ketorolac Inj (Toradol Inj) (07/11/17 04:30) Labs Laboratory Tests Test 07/11/17 01:52 White Blood Count 8.7 TH/MM3 Red Blood Count 4.08 MIL/MM3 Hemoglobin 12.4 GM/DL Hematocrit 36.8 % Mean Corpuscular Volume 90.1 FL Mean Corpuscular Hemoglobin 30.4 PG Mean Corpuscular Hemoglobin Concent 33.7 % Red Cell Distribution Width 13.7 % Platelet Count 231 TH/MM3 Mean Platelet Volume 7.8 FL Neutrophils (%) (Auto) 53.2 % Lymphocytes (%) (Auto) 34.4 % Monocytes (%) (Auto) 7.1 % Eosinophils (%) (Auto) 4.8 % Basophils (%) (Auto) 0.5 % Neutrophils # (Auto) 4.6 TH/MM3 Lymphocytes # (Auto) 3.0 TH/MM3 Monocytes # (Auto) 0.6 TH/MM3 Eosinophils # (Auto) 0.4 TH/MM3 Basophils # (Auto) 0.0 TH/MM3 CBC Comment DIFF FINAL Differential Comment Urine Color YELLOW Urine Turbidity HAZY Urine pH 5.5 Urine Specific [place] 1.032 Urine Protein TRACE mg/dL Urine Glucose (UA) NEG mg/dL Urine Ketones NEG mg/dL Urine Occult Blood TRACE Urine Nitrite POS Urine Bilirubin NEG Urine Urobilinogen 2.0 MG/DL Urine Leukocyte Esterase TRACE Urine RBC 4 /hpf Urine WBC 5 /hpf Urine Squamous Epithelial Cells 6 /hpf Urine Calcium Oxalate Crystals RARE /hpf Urine Bacteria OCC /hpf Urine Mucus FEW /lpf Microscopic Urinalysis Comment CULTURE INDICATED Blood Urea Nitrogen 13 MG/DL Creatinine 0.70 MG/DL Random Glucose 101 MG/DL Total Protein 6.4 GM/DL Albumin 3.4 GM/DL Calcium Level 8.2 MG/DL Alkaline Phosphatase 66 U/L Aspartate Amino Transf (AST/SGOT) 14 U/L Alanine Aminotransferase (ALT/SGPT) 13 U/L Total Bilirubin 0.2 MG/DL Sodium Level 139 MEQ/L Potassium Level 3.5 MEQ/L Chloride Level 106 MEQ/L Carbon Dioxide Level 28.2 MEQ/L Anion Gap 5 MEQ/L Estimat Glomerular Filtration Rate 101 ML/MIN Human Chorionic Gonadotropin, Quant LESS THAN 1 MIU/ML MDM Medical Decision Making Medical Screen Exam Complete: Yes Emergency Medical Condition: Yes Medical Record Reviewed: Yes Interpretation(s) CBC & BMP Diagram 07/11/17 01:52 Total Protein 6.4, Albumin 3.4, Calcium Level 8.2 L, Alkaline Phosphatase 66, Aspartate Amino Transf (AST/SGOT) 14 L, Alanine Aminotransferase (ALT/SGPT) 13, Total Bilirubin 0.2 Vital Signs Date Time Temp Pulse Resp B/P (MAP) Pulse Ox O2 Delivery O2 Flow Rate FiO2 07/11/17 04:06 76 14 130/84 (99) 99 Room Air 07/11/17 03:00 84 16 132/92 (105) 100 Room Air 07/11/17 00:52 98.0 78 18 125/88 (100) 100 Room Air Differential Diagnosis Gastritis, gastroenteritis food borne illness UTI biliary colic cholecystitis renal colic dehydration electrolyte disturbance Narrative Course IV access obtained specimens collected and sent for resulting [id number] hCG is negative quantitative hCG ordered Quantitative hCG less than one, negative lab values otherwise within normal range except for urinalysis which shows positive nitrites leukocyte Estrace culture is indicated Patient continues complaining of pain and nausea and given one-time dose of Toradol 30 mg IV Rocephin 1 g for first dose of IV antibiotic and CT kidney stone protocol ordered Cabinet and pelvis reveals no acute intra-abdominal or pelvic process Patient is aware of lab results imaging results and is clinically improved and stable for outpatient management she is encouraged to follow-up with her primary care provider increase fluid hydration Diagnosis Primary Impression: UTI (urinary tract infection) Referrals: Primary Care Physician call for appointment Patient Instructions: General Instructions Additional Instructions: Increase fluid hydration Follow-up with your primary care provider Complete course of antibiotic as prescribed Takes Zofran as prescribed as needed for nausea and vomiting Monitor temperature for fever take as needed acetaminophen/Tylenol for fever 100.4F or greater or ibuprofen/Advil/Motrin every 6-8 hours as needed for fever 100.4F or greater return to the emergency department for any concerns or change in condition Med/Other Pt SpecificInfo: Prescription(s) given Scripts Ondansetron Odt (Zofran Odt) 4 Mg Tab 4 MG SL Q6HR Y for Nausea/Vomiting, #10 TAB 0 Refills Prov: Angelika Dang MD 07/11/17 Nitrofurantoin Monohydrate Macrocrystals (Macrobid) 100 Mg Cap 100 MG PO BID for Infection for 10 Days, #20 CAP 0 Refills Prov: Angelika Dang MD 07/11/17 Disposition: 01 DISCHARGE HOME Condition: Stable Angelkia Dang MD Jul 11, 2017 04:49
[2017-07-11] MEDS ORDERED: MACR100C2 PO (04:51)
[2017-07-11] MEDS ORDERED: ZOFR4TAB3 SL (04:51)
[2017-07-11 05:44] VITALS: BP 126/78; PULSE 74; RESP 12; O2SAT 99
== END 2017-07-11 05:44 | disposition home or self-care (01) ==
LOC: NEPC 00:50
DX: N39.0 Urinary tract infection, site not specified (principal); B96.20 Unspecified Escherichia coli [E. coli] as the cause of diseases classified elsewhere; R11.2 Nausea with vomiting, unspecified; R01.1 Cardiac murmur, unspecified; F17.200 Nicotine dependence, unspecified, uncomplicated
CPT/HCPCS: 74176; 80053; 81001; 84702; 84703; 85025; 87077; 87086; 87186; 96361; 96365; 96375; 99285; J0696; J1885; J2405; J7030